=== PATIENT | female | born 1985 | race Caucasian/White ===

== ENCOUNTER 2016-08-25 20:49 | Emergency (ER) | payer MEDICAID ==
[~2016-08-25] VITALS: Ht 160 cm; Wt 71.0 kg
[~2016-08-25 20:49] MED LIST: PNV1TABL43 PO
[2016-08-25 20:56] VITALS: Ht 160 cm; Wt 71.0 kg
--- NOTE | 2016-08-26 00:44 | ERD ---
ER Documentation Chief Complaint Date/Time DATE: 08/26/16 TIME: 00:40 Chief Complaint FEVER WITH SORE THROAT X 3 DAYS HPI This is a 31-year-old female presenting to the emergency department for sore throat and tactile fever 3 days. Patient reports sore throat and painful swallowing. No difficulty swallowing or drooling. Patient reports she felt warm however she did not check her temperature. Patient states she recently was diagnosed with a "throat infection that was treated with antibiotics" and patient states infection has now returned after stopping antibiotics. Patient states she has cough that is nonproductive. No shortness of breath or difficulty breathing. No chest pain or heart palpitations. No nausea, vomiting or diarrhea. No abdominal pain. ROS All systems reviewed and are negative except as per history of present illness. Medications Home Meds Reported Medications Vit/Fe Fumarate/Fa* ( Vitamin Tablet*) 1 Tab Tablet, 1 TAB PO 01/27/13 Allergies Allergies: Coded Allergies: No Known Allergies (Verified Allergy, 04/11/13) PMhx/Soc Medical and Surgical Hx: pt denies Medical Hx, pt denies Surgical Hx History of Surgery: Yes (c section 9 days) Hx Alcohol Use: No Hx Substance Use: No Hx Tobacco Use: No Smoking Status: Never smoker Physical Exam Vitals Vital Signs Date Time Temp Pulse Resp B/P Pulse Ox O2 Delivery O2 Flow Rate FiO2 08/25/16 20:56 97.9 86 18 127/78 100 Physical Exam Const: No acute distress, alert Head: Atraumatic Eyes: Normal Conjunctiva ENT: Normal External Ears, Nose and Mouth. No erythema or exudate to posterior pharynx. No peritonsillar abscess. Non-kissing tonsils. TMs normal bilaterally. Neck: Full range of motion..~ No meningismus. Resp: Clear to auscultation bilaterally. No wheezing, rhonchi or crackles. No stridor or labored breathing. Patient is talking in complete sentences. Cardio: Regular rate and rhythm, no murmurs Abd: Soft, non tender, non distended. Normal bowel sounds Skin: No petechiae or rashes Back: No midline or flank tenderness Ext: No cyanosis, or edema Neur: Awake and alert Psych: Normal Mood and Affect Procedures/MDM MDM: This is a 31-year-old female presenting to the emergency department for sore throat with tactile fevers for the past 3 days. Upon arrival, patient is afebrile with normal heart rate of 86 bpm. Vital signs are stable. No signs or symptoms of respiratory distress. Oxygen saturation 100% on room air. Patient is talking in complete sentences. No difficulty swallowing or drooling. Differential diagnosis includes but not limited to strep pharyngitis, pneumonia , viral pharyngitis, influenza, coxsackievirus, herpes simplex virus, Tadeo- Stein virus, Respiratory syncytial virus and otitis media. Patient likely has viral pharyngitis. Patient is appropriate for outpatient management. Instructed patient to continue taking ibuprofen as needed for pain or fever. Monegasque translation use during this encounter. Instructed patient to follow up with primary care provider in the next 2-3 days for reassessment. Return to ED for any high fever , chest pain, difficulty breathing, shortness breath, wheezing, vomiting, diarrhea, abdominal pain or any new or worsening symptoms. Patient verbalizes understanding. All questions answered at discharge. Departure Diagnosis: Primary Impression: Pharyngitis Pharyngitis/tonsillitis etiology: unspecified etiology Qualified Code: J02.9 - Pharyngitis, unspecified etiology Condition: Stable Patient Instructions: Pharyngitis, Viral Referrals: [facility] YOU HAVE RECEIVED A MEDICAL SCREENING EXAM AND THE RESULTS INDICATE THAT YOU DO NOT HAVE A CONDITION THAT REQUIRES URGENT TREATMENT IN THE EMERGENCY DEPARTMENT. FURTHER EVALUATION AND TREATMENT OF YOUR CONDITION CAN WAIT UNTIL YOU ARE SEEN IN YOUR DOCTORS OFFICE WITHIN THE NEXT 1-2 DAYS. IT IS YOUR RESPONSIBILITY TO MAKE AN APPOINTMENT FOR FOLOW-UP CARE. IF YOU HAVE A PRIMARY DOCTOR --you should call your primary doctor and schedule an appointment IF YOU DO NOT HAVE A PRIMARY DOCTOR YOU CAN CALL OUR PHYSICIAN REFERRAL HOTLINE AT IF YOU CAN NOT AFFORD TO SEE A PHYSICIAN YOU CAN CHOSE FROM THE FOLLOWING [facility] [address] [facility] [address] [facility] [address] [facility] [address] [facility] [address] [facility] [facility] [address] [facility]. [facility] YOU HAVE RECEIVED A MEDICAL SCREENING EXAM AND THE RESULTS INDICATE THAT YOU DO NOT HAVE A CONDITION THAT REQUIRES URGENT TREATMENT IN THE EMERGENCY DEPARTMENT. FURTHER EVALUATION AND TREATMENT OF YOUR CONDITION CAN WAIT UNTIL YOU ARE SEEN IN YOUR DOCTORS OFFICE WITHIN THE NEXT 1-2 DAYS. IT IS YOUR RESPONSIBILITY TO MAKE AN APPOINTMENT FOR FOLOW-UP CARE. IF YOU HAVE A PRIMARY DOCTOR --you should call your primary doctor and schedule and appointment IF YOU DO NOT HAVE A PRIMARY DOCTOR YOU CAN CALL OUR PHYSICIAN REFERRAL HOTLINE AT . IF YOU CAN NOT AFFORD TO SEE A PHYSICIAN YOU CAN CHOSE FROM THE FOLLOWING [facility] INSTITUTIONS: [facility] [address] [place] [address] [facility] [address] [place] [address] [facility] [address] [place] [address] Additional Instructions: Llame al doctor MAANA y leisa kate AMISH PARA DENTRO DE 2-3 MORGAN.Dgale a la secretaria que nosotros le instruimos hacer esta amish.Avise o llame si abdullahi condicin se empeora antes de la amish. Regresa aqui si peor o no mejor. Regresar a ED por fiebre radha, dolor en el pecho, dificultad para respirar, respiracin entrecortada, sibilancias, vmitos, diarrea, dolor abdominal o cualquier sntoma nuevo o que empeora. WENDY HUERTAS NP Aug 26, 2016 00:44
== END 2016-08-25 23:30 | disposition home or self-care (01) ==
LOC: FTE 20:49
DX: J02.9 Acute pharyngitis, unspecified (principal)
CPT/HCPCS: 99282

== ENCOUNTER 2018-01-27 13:00 | Inpatient (IN) | END 2018-01-30 12:50 | disposition home or self-care (01) | DRG 788 ==